=== PATIENT | male | born 1965 | race Caucasian/White ===

== ENCOUNTER 2020-08-18 01:51 | Emergency (ER) | payer BC ==
[~2020-08-18] VITALS: Ht 190.5 cm; Wt 96.4 kg
[2020-08-18 02:01] VITALS: TEMP 97.7
[2020-08-18] MEDS ORDERED: CEPHALEXIN500 M1 PO (02:41)
[2020-08-18 03:05] VITALS: BP 141/87; PULSE 69
== END 2020-08-18 03:05 | disposition home or self-care (01) ==
LOC: COL.ER 01:51
DX: S61.411A Laceration without foreign body of right hand, initial encounter (principal); W26.8XXA Contact with other sharp object(s), not elsewhere classified, initial encounter; Y99.0 Civilian activity done for income or pay